=== PATIENT | female | born 1965 | race Caucasian/White ===

== ENCOUNTER → 2024-09-19 | Outpatient (CLI) | payer SELFPAY ==
--- NOTE | 2024-09-19 | EMB_PTH ---
PATIENT: EMMA CH LOC: [facility] U#:[id number] AGE/SX: 59/F ROOM: RE09/19/[address]: RUSTY Hurtado : 1965 BED: DIS: 09/19/2024 SPEC #: [id number] RECD: 09/19/24 12:10 STATUS: SAAD WILLIAM #: [id number] BOSSMAN: 09/19/24 00:[address]: Lydia Anaya NP DEPT: SURGICAL PATHOLOGY RECD BY: Morris Casarez ENTERED: 09/19/24 13:46 SP TYPE: ENDOM BX/C MIRIAN DR: Dr. Janelle Clarke MD Tissues: Endometrium, NOS Procedures: Surgery Specimen Level IV HEADER OPERATION: Endometrial biopsy PRE-OP DIAGNOSIS: Thickened endometrium TISSUE SUBMITTED: Endometrial tissue MICROSCOPIC DIAGNOSIS Endometrium, biopsy: Scant strips of benign superficial endometrial and endocervical tissue. AM. 09/20/2024 MICROSCOPIC DESCRIPTION Slides are reviewed. GROSS DESCRIPTION Received is one container labeled with the patient's name and not further designated. The specimen consists of multiple irregular fragments of light to dark joyce soft tissue that in aggregate measure 2.5 x 1.0 x <0.1 cm. The specimen is totally submitted in one cassette. 09/19/2024 TC:5 CPT:[id number]
[2024-09-24 14:08] LABS: HPV APTIMA, High Risk Negative (Negative)
== END | disposition home or self-care (01) ==
PROVIDERS: PCP Family Medicine; Referring Provider Nurse Practitioner Women's Health; Visit Provider Nurse Practitioner Women's Health
DX: Z12.4 Encounter for screening for malignant neoplasm of cervix (principal)
CPT/HCPCS: 87624; 88175; 88305; G0145